=== PATIENT | male | born 1980 | race Two or more races ===

== ENCOUNTER 2021-04-01 21:24 | Emergency (ER) | payer SELFPAY ==
[~2021-04-01] VITALS: Ht 172.7 cm; Wt 75.7 kg
[2021-04-01 21:37] VITALS: BP 143/100
== END 2021-04-01 23:02 | disposition left against medical advice (07) ==
LOC: ER 21:28
DX: T76.21XA Adult sexual abuse, suspected, initial encounter (principal); Y08.89XA Assault by other specified means, initial encounter; Y93.89 Activity, other specified; Y92.89 Other specified places as the place of occurrence of the external cause; Y99.8 Other external cause status